=== PATIENT | male | born 1975 | race Caucasian/White ===

== ENCOUNTER 2016-11-21 17:38 | Emergency (ER) | payer SELFPAY ==
[~2016-11-21] VITALS: Ht 177.8 cm; Wt 68.0 kg
[2016-11-21 18:07] VITALS: BP 131/83
[2016-11-21] MEDS ORDERED: IBUPROFEN 600 MG TABLET PO ONE ×2 (18:30→18:34)
--- NOTE | 2016-11-21 18:45 | NUR ---
D/C IN STABLE CONDITION. WOUND CARE AND HARD SOLE SHOE PROVIDED.
== END 2016-11-21 18:46 | disposition home or self-care (01) ==
LOC: ER 18:19
DX: T69.022A Immersion foot, left foot, initial encounter (principal); T69.021A Immersion foot, right foot, initial encounter; Z59.0 Homelessness; X58.XXXA Exposure to other specified factors, initial encounter; Y92.89 Other specified places as the place of occurrence of the external cause; Y93.89 Activity, other specified; Y99.8 Other external cause status
CPT/HCPCS: 99282; A4606; Z7610

== ENCOUNTER 2020-07-08 10:59 | Emergency (ER) | payer SELFPAY ==
[~2020-07-08] VITALS: Ht 167.6 cm; Wt 77.1 kg
--- NOTE | 2020-07-08 10:59 | NUR ---
PT BIB SELF C/O GEN. BODY PAIN. PT IS AAOX4, NOT IN RESPIRATORY DISTRESS, V/S STABLE, KEPT RESTED AND COMFORTABLE. WILL CONTINUE TO MONITOR.
--- NOTE | 2020-07-08 11:21 | NUR ---
SEEN AND EXAMINED BY .
--- NOTE | 2020-07-08 11:28 | NUR ---
PT REFUSED COVID TESTING.
--- NOTE | 2020-07-08 11:28 | NUR ---
PT REFUSED TO HAVE A COVID TEST DONE. EXPLAINED TO PAIN THAT IT IS IMPORTANT BUT STILL REFUSED.
[2020-07-08 12:00] LABS: BASOPHILS % (AUTO) 0.6 % (0.0-2.0); EOSINOPHILS % (AUTO) 1.6 % (0.0-6.0); HEMATOCRIT 44 % (39-51); HEMOGLOBIN 14.9 g/dL (13.5-17.5); LYMPHOCYTES # (AUTO) 1.8 /CMM (0.8-4.8); LYMPHOCYTES % (AUTO) 26.5 % (20.0-44.0); MEAN CORPUSCULAR HGB CONC 34 g/dl (31.0-36.0); MEAN CORPUSCULAR VOLUME 84 fL (80-96); MONOCYTES # (AUTO) 0.5 /CMM (0.1-1.30); MONOCYTES % (AUTO) 6.7 % (2.0-12.0); NEUTROPHILS # (AUTO) 4.5 /CMM (1.8-8.9); NEUTROPHILS % (AUTO) 64.6 % (43.0-81.0); PLATELET COUNT (AUTO) 262 /CMM (150-450); RED BLOOD CELL COUNT(AUTO) 5.23 MIL/uL (4.5-6.0); WHITE BLOOD COUNT (AUTO) 6.9 K/uL (4.3-11.0)
[2020-07-08 12:04] LABS: CALCIUM, SERUM 9.1 mg/dL (8.5-10.1); CREATININE 0.9 mg/dL (0.6-1.3); POTASSIUM 4.1 mmol/L (3.5-5.1)
[2020-07-08 12:10] LABS: ALBUMIN 3.8 g/dL (3.4-5.0); BILIRUBIN,TOTAL 1.6 mg/dL (0.2-1.0); TOTAL PROTEIN, SERUM 7.4 g/dL (6.4-8.2)
[2020-07-08] MEDS ORDERED: IBUP-1955 PO (12:28)
[2020-07-08] MEDS ORDERED: IBUPROFEN 600 MG TABLET ONE (12:29)
[2020-07-08] MEDS: IBUPROFEN 600 MG TABLET PO ONE (12:33)
--- NOTE | 2020-07-08 12:34 | NUR ---
Patient given written and verbal discharge instructions. Patient verbalizes understanding of instructions. Patient is ambulatory with steady gait. Refuses offer of [facility] placement. Patient given list of available shelters in surrounding area.
[2020-07-08 12:36] VITALS: BP 102/53
== END 2020-07-08 12:36 | disposition home or self-care (01) ==
LOC: ER 11:04
DX: B34.9 Viral infection, unspecified (principal); R19.7 Diarrhea, unspecified; Z59.0 Homelessness
CPT/HCPCS: 36415; 71045-TC; 80053-TC; 83690-TC; 85025-TC

== ENCOUNTER 2020-11-11 09:57 | Emergency (ER) | payer MEDICAID, OTHER ==
[~2020-11-11] VITALS: Ht 177.8 cm; Wt 81.6 kg
[~2020-11-11 09:57] MED LIST: IBUP-1955 PO
--- NOTE | 2020-11-11 10:05 | NUR ---
CALLED IN ED WAITING ROOM. NO RESPONSE.
[2020-11-11 10:34] VITALS: BP 129/71
--- NOTE | 2020-11-11 10:35 | NUR ---
THE PATIENT BIBS FOR C/O RIGHT HAND RING FINGER PAIN SINCE THIS AM. WILL CONTINUE TO MONITOR THE PATIENT.
--- NOTE | 2020-11-11 10:43 | NUR ---
Patient discharged to home in stable condition. Written and verbal after care instructions given. Patient verbalizes understanding of instruction.
== END 2020-11-11 10:44 | disposition home or self-care (01) ==
LOC: ER 10:01
DX: S60.221A Contusion of right hand, initial encounter (principal); Z59.0 Homelessness; X58.XXXA Exposure to other specified factors, initial encounter; Y93.89 Activity, other specified; Y92.89 Other specified places as the place of occurrence of the external cause; Y99.8 Other external cause status

== ENCOUNTER 2020-11-22 12:07 | Emergency (ER) | payer OTHER ==
[~2020-11-22] VITALS: Ht 177.8 cm; Wt 81.6 kg
--- NOTE | 2020-11-22 12:30 | NUR ---
LEFT SIDED JAW PAIN X 3 DAYS,DENIES ANY TRAUMA. PATIENT A/OX4, BREATHING EVEN AND UNLABORED, NO SOB NOTED, NEEDS ATTENDED.
[2020-11-22 13:53] LABS: BASOPHILS # (AUTO) 0.1 /CMM (0.0-0.2); BASOPHILS % (AUTO) 0.7 % (0.0-2.0); EOSINOPHILS % (AUTO) 1.5 % (0.0-6.0); HEMATOCRIT 41 % (39-51); HEMOGLOBIN 13.7 g/dL (13.5-17.5); LYMPHOCYTES # (AUTO) 2.3 /CMM (0.8-4.8); LYMPHOCYTES % (AUTO) 22.8 % (20.0-44.0); MEAN CORPUSCULAR HGB CONC 34 g/dl (31.0-36.0); MEAN CORPUSCULAR VOLUME 85 fL (80-96); MONOCYTES # (AUTO) 0.7 /CMM (0.1-1.30); MONOCYTES % (AUTO) 7.2 % (2.0-12.0); NEUTROPHILS # (AUTO) 6.8 /CMM (1.8-8.9); NEUTROPHILS % (AUTO) 67.8 % (43.0-81.0); PLATELET COUNT (AUTO) 243 /CMM (150-450); RED BLOOD CELL COUNT(AUTO) 4.81 MIL/uL (4.5-6.0); WHITE BLOOD COUNT (AUTO) 10.1 K/uL (4.3-11.0)
[2020-11-22 14:00] LABS: CALCIUM, SERUM 9.2 mg/dL (8.5-10.1); CARBON DIOXIDE 29 mmol/L (21-32); CHLORIDE 104 mmol/L (98-107); CREATININE 0.8 mg/dL (0.6-1.3); GLUCOSE 88 mg/dL (74-106); POTASSIUM 3.9 mmol/L (3.5-5.1); SODIUM SERUM 139 mmol/L (136-145); UREA NITROGEN, BLOOD 16 mg/dL (7-18)
[2020-11-22] MEDS ORDERED: AMOX500C2 PO (14:09)
--- NOTE | 2020-11-22 14:17 | NUR ---
Patient discharged to home in stable condition. Written and verbal after care instructions given. Patient verbalizes understanding of instruction.IV removed. Catheter intact and site benign. Pressure and 4x4 applied to site. No bleeding noted. Pt ambulatory with a steady gait
[2020-11-22 14:23] VITALS: BP 134/75
--- NOTE | 2020-11-22 14:27 | NUR ---
Patient given written and verbal discharge instructions. Patient verbalizes understanding of instructions. Patient is ambulatory with steady gait. Refuses offer of half-way placement. Patient given list of available shelters in surrounding area.
== END 2020-11-22 14:24 | disposition home or self-care (01) ==
LOC: ER 12:07
DX: K04.7 Periapical abscess without sinus (principal); Z60.2 Problems related to living alone; Z79.899 Other long term (current) drug therapy
CPT/HCPCS: 36415; 70486-TC; 71045-TC; 80048-TC; 84484-TC; 85025-TC

== ENCOUNTER 2021-12-17 18:44 | Emergency (ER) | payer OTHER ==
[~2021-12-17] VITALS: Ht 175.3 cm; Wt 82.1 kg
[~2021-12-17 18:44] MED LIST changes: +AMOX500C2 PO
[2021-12-17 19:22] VITALS: BP 141/78
[2021-12-17] MEDS ORDERED: PENI500T PO (19:43)
== END 2021-12-17 19:49 | disposition home or self-care (01) ==
LOC: ER 18:44
DX: S02.5XXA Fracture of tooth (traumatic), initial encounter for closed fracture (principal); Z60.2 Problems related to living alone; Z79.899 Other long term (current) drug therapy; X58.XXXA Exposure to other specified factors, initial encounter; Y93.89 Activity, other specified; Y92.89 Other specified places as the place of occurrence of the external cause; Y99.8 Other external cause status

== ENCOUNTER 2023-07-17 16:45 | Emergency (ER) | payer OTHER ==
[~2023-07-17] VITALS: Ht 175.3 cm; Wt 82.1 kg
[~2023-07-17 16:45] MED LIST changes: +PENI500T PO
[2023-07-17] MEDS ORDERED: ONDANSETRON HCL/PF 4 MG/2 ML VIAL ONE (17:53)
[2023-07-17] MEDS: CLONIDINE HCL 0.1 MG TABLET PO ONE (21:25)
[2023-07-17] MEDS: ONDANSETRON HCL/PF - ER 4 MG/2 ML VIAL IV ONE (21:25)
[2023-07-17] MEDS: IV NS 0.9% 1,000 ML BAG IV ONE (21:25)
[2023-07-17 21:27] VITALS: BP 145/70; TEMP 97.8; O2SAT 96
== END 2023-07-17 21:27 | disposition home or self-care (01) ==
LOC: ER 16:50
DX: T40.2X1A Poisoning by other opioids, accidental (unintentional), initial encounter (principal); R11.10 Vomiting, unspecified; Z60.2 Problems related to living alone; Y92.89 Other specified places as the place of occurrence of the external cause
CPT/HCPCS: J2405

== ENCOUNTER 2025-03-10 10:30 | Emergency (ER) | payer MEDICAID, OTHER ==
[~2025-03-10] VITALS: Ht 175.3 cm; Wt 72.6 kg
[2025-03-10 10:37] VITALS: BP 141/75; TEMP 98.1
[2025-03-10] MEDS ORDERED: KETOROLAC TROMETHAMINE 15 MG/ML VIAL ONE (10:46)
[2025-03-10] MEDS: KETOROLAC TROMETHAMINE 15 MG/ML VIAL IM ONE (10:49)
[2025-03-10] MEDS ORDERED: AMOX-430 PO (10:53)
[2025-03-10] MEDS ORDERED: IBUP-1953 PO (10:53)
[2025-03-10 11:03] VITALS: O2SAT 97
== END 2025-03-10 11:03 | disposition home or self-care (01) ==
LOC: ER 10:33
DX: S02.5XXA Fracture of tooth (traumatic), initial encounter for closed fracture (principal); F17.200 Nicotine dependence, unspecified, uncomplicated; Z79.1 Long term (current) use of non-steroidal anti-inflammatories (NSAID); X58.XXXA Exposure to other specified factors, initial encounter; Y93.89 Activity, other specified; Y92.89 Other specified places as the place of occurrence of the external cause; Y99.8 Other external cause status
CPT/HCPCS: 99283; 96372; J1885